=== PATIENT | male | born 1950 ===

== ENCOUNTER 2025-01-29 11:20 | Outpatient (CLI) | payer MEDICARE ==
--- NOTE | 2025-01-29 17:52 | RADIOLOGY REPORT ---
EXAM: CT CT LOWER EXTREMITY INDICATION: TRAUMA TECHNIQUE: Axial images of right lower extremity have been obtained along with coronal and sagittal r eformatted images. All CT scans at this facility use dose modulation, iterative reconstruction, and/o r weight based dosing when appropriate to reduce radiation dose to as low as reasonably achievable. COMPARISON: None FINDINGS: BONES: No CT evidence of an acute fracture or aggressive osseous lesion. Right total hip arthroplasty . MUSCLES: Mild fatty infiltration of the gluteus medius. Trace heterotopic ossification along the dist al anterior gluteus medius muscle belly. JOINT SPACES: No joint effusion. TENDONS/LIGAMENTS: Intact. OTHER: Sigmoid diverticulosis. Minimal circumferential bladder wall thickening. Brachytherapy beads. IMPRESSION: 1. No CT evidence of an acute fracture. 2. Fatty atrophy along the gluteus medius muscle belly with areas of heterotopic ossification. 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
== END 2025-01-29 23:59 | disposition home or self-care (01) ==
LOC: RAD 11:20
PROVIDERS: ATTEND Nurse Practitioner Family
DX: S79.911A Unspecified injury of right hip, initial encounter (principal); M62.551 Muscle wasting and atrophy, not elsewhere classified, right thigh; X58.XXXA Exposure to other specified factors, initial encounter; Y93.9 Activity, unspecified; Y92.89 Other specified places as the place of occurrence of the external cause; Y99.8 Other external cause status
CPT/HCPCS: 73700